=== PATIENT | female | born 1980 | race Two or more races ===

== ENCOUNTER 2021-05-22 08:37 | Outpatient (CLI) | payer OTHER | END 2021-05-22 08:38 | disposition home or self-care (01) | LOC: LAB 08:37 | PROVIDERS: ATTEND Internal Medicine Hematology & Oncology | DX: D50.8 Other iron deficiency anemias (principal); R79.89 Other specified abnormal findings of blood chemistry; I10 Essential (primary) hypertension; R74.02 Elevation of levels of lactic acid dehydrogenase [LDH]; K76.89 Other specified diseases of liver; C50.919 Malignant neoplasm of unspecified site of unspecified female breast; R97.8 Other abnormal tumor markers; R97.1 Elevated cancer antigen 125 [CA 125]; D50.0 Iron deficiency anemia secondary to blood loss (chronic); N93.8 Other specified abnormal uterine and vaginal bleeding ==

== ENCOUNTER 2021-05-22 09:10 | Outpatient (CLI) | payer OTHER | END 2021-05-22 09:18 | disposition home or self-care (01) | LOC: SONOGRAMA 09:10 | PROVIDERS: ATTEND Internal Medicine Hematology & Oncology | DX: E04.2 Nontoxic multinodular goiter (principal); D50.0 Iron deficiency anemia secondary to blood loss (chronic); N93.8 Other specified abnormal uterine and vaginal bleeding; E03.8 Other specified hypothyroidism ==

== ENCOUNTER → 2021-05-27 | Outpatient (CLI) | payer OTHER | END | disposition home or self-care (01) | LOC: SONOGRAMA 07:46 | PROVIDERS: ATTEND Internal Medicine Hematology & Oncology | DX: D25.1 Intramural leiomyoma of uterus (principal); D50.0 Iron deficiency anemia secondary to blood loss (chronic); N93.8 Other specified abnormal uterine and vaginal bleeding ==

== ENCOUNTER 2021-07-10 08:15 | Outpatient (CLI) | payer OTHER | END 2021-07-10 08:16 | disposition home or self-care (01) | LOC: LAB 08:15 | PROVIDERS: ATTEND Internal Medicine Hematology & Oncology | DX: D50.0 Iron deficiency anemia secondary to blood loss (chronic) (principal) ==

== ENCOUNTER 2021-10-09 08:37 | Outpatient (CLI) | payer OTHER | END 2021-10-09 08:44 | disposition home or self-care (01) | LOC: LAB 08:37 | PROVIDERS: ATTEND Internal Medicine Hematology & Oncology | DX: D50.8 Other iron deficiency anemias (principal); R79.9 Abnormal finding of blood chemistry, unspecified; I10 Essential (primary) hypertension; R74.02 Elevation of levels of lactic acid dehydrogenase [LDH]; K76.89 Other specified diseases of liver; D51.8 Other vitamin B12 deficiency anemias ==

== ENCOUNTER → 2022-02-07 08:43 | Outpatient (CLI) | payer OTHER | END | disposition home or self-care (01) | LOC: LAB 08:43 | PROVIDERS: ATTEND Internal Medicine Hematology & Oncology | DX: D50.8 Other iron deficiency anemias (principal); R79.9 Abnormal finding of blood chemistry, unspecified; I10 Essential (primary) hypertension; R74.02 Elevation of levels of lactic acid dehydrogenase [LDH]; K76.89 Other specified diseases of liver; C56.9 Malignant neoplasm of unspecified ovary; R97.8 Other abnormal tumor markers; R97.1 Elevated cancer antigen 125 [CA 125]; R97.0 Elevated carcinoembryonic antigen [CEA]; D50.0 Iron deficiency anemia secondary to blood loss (chronic); N93.8 Other specified abnormal uterine and vaginal bleeding; D25.1 Intramural leiomyoma of uterus ==

== ENCOUNTER 2022-03-04 11:38 | Outpatient (CLI) | payer OTHER | END 2022-03-04 11:46 | disposition home or self-care (01) | LOC: MAMO-SONO 11:38 | PROVIDERS: ATTEND Obstetrics & Gynecology | DX: Z12.31 Encounter for screening mammogram for malignant neoplasm of breast (principal); N63.21 Unspecified lump in the left breast, upper outer quadrant ==

== ENCOUNTER 2022-03-07 09:45 | Inpatient (IN) | payer OTHER ==
[~2022-03-07] VITALS: Ht 274.3 cm; Wt 95.3 kg
[2022-03-07] MEDS ORDERED: FUSION CAPSULE1 EACH PO (11:49)
[2022-03-12] MEDS ORDERED: MEDROXYPROGESTE10 MG (14:35)
[2022-03-12] MEDS ORDERED: FUSION PLUS CA1 EACH (14:36)
[2022-03-16] MEDS ORDERED: OXYC1TAB9 PO (12:17)
[2022-03-16] MEDS ORDERED: FUSION CAPSULE1 EACH PO (12:17)
== END 2022-03-16 13:10 | disposition home or self-care (01) | DRG 742 ==
LOC: O/R 03-12 07:55 → LDR 03-12 09:30 → OB/GYN 03-12 15:39
PROVIDERS: ADMIT Obstetrics & Gynecology; ATTEND Obstetrics & Gynecology
PROC: 0UT70ZZ Resection of Bilateral Fallopian Tubes, Open Approach (ICD-10-PCS; 2022-03-12)
PROC: 0UT90ZZ Resection of Uterus, Open Approach (ICD-10-PCS; principal; 2022-03-12 09:30)
PROC: 30233N1 Transfusion of Nonautologous Red Blood Cells into Peripheral Vein, Percutaneous Approach (ICD-10-PCS; 2022-03-15)
DX: D25.1 Intramural leiomyoma of uterus (principal); D62 Acute posthemorrhagic anemia; D25.2 Subserosal leiomyoma of uterus; N72 Inflammatory disease of cervix uteri; Z20.822 Contact with and (suspected) exposure to COVID-19

== ENCOUNTER → 2022-03-28 09:50 | Outpatient (CLI) | payer OTHER ==
[~2022-03-28 09:50] MED LIST: FUSION CAPSULE1 EACH PO; FUSION PLUS CA1 EACH; MEDROXYPROGESTE10 MG; OXYC1TAB9 PO
== END | disposition home or self-care (01) ==
LOC: LAB 09:50
PROVIDERS: ATTEND Internal Medicine Hematology & Oncology
DX: D50.8 Other iron deficiency anemias (principal); R79.9 Abnormal finding of blood chemistry, unspecified; I10 Essential (primary) hypertension; R74.02 Elevation of levels of lactic acid dehydrogenase [LDH]; K76.89 Other specified diseases of liver; D50.0 Iron deficiency anemia secondary to blood loss (chronic); N93.8 Other specified abnormal uterine and vaginal bleeding; D25.1 Intramural leiomyoma of uterus; D53.0 Protein deficiency anemia

== ENCOUNTER 2022-03-28 10:20 | Outpatient (CLI) | payer OTHER | END 2022-03-28 10:22 | disposition home or self-care (01) | LOC: SONOGRAMA 10:20 | DX: N63.21 Unspecified lump in the left breast, upper outer quadrant (principal) ==

== ENCOUNTER 2022-11-07 07:11 | Outpatient (CLI) | payer OTHER | END 2022-11-07 07:12 | disposition home or self-care (01) | LOC: LAB 07:11 | PROVIDERS: ATTEND Internal Medicine Hematology & Oncology | DX: D50.8 Other iron deficiency anemias (principal); R79.9 Abnormal finding of blood chemistry, unspecified; I10 Essential (primary) hypertension; R74.02 Elevation of levels of lactic acid dehydrogenase [LDH]; K76.89 Other specified diseases of liver; C56.9 Malignant neoplasm of unspecified ovary; R97.8 Other abnormal tumor markers; R97.1 Elevated cancer antigen 125 [CA 125]; R97.0 Elevated carcinoembryonic antigen [CEA]; D50.0 Iron deficiency anemia secondary to blood loss (chronic); N93.8 Other specified abnormal uterine and vaginal bleeding; D25.1 Intramural leiomyoma of uterus; D53.0 Protein deficiency anemia ==

== ENCOUNTER 2022-11-07 08:02 | Outpatient (CLI) | payer OTHER | END 2022-11-07 08:08 | disposition home or self-care (01) | LOC: TOM 08:02 | PROVIDERS: ATTEND Family Medicine | DX: R10.2 Pelvic and perineal pain (principal) ==

== ENCOUNTER → 2023-03-19 06:41 | Outpatient (CLI) | payer OTHER | END | disposition home or self-care (01) | LOC: LAB 06:41 | PROVIDERS: ATTEND Internal Medicine Hematology & Oncology | DX: D50.8 Other iron deficiency anemias (principal); R79.9 Abnormal finding of blood chemistry, unspecified; I10 Essential (primary) hypertension; R74.02 Elevation of levels of lactic acid dehydrogenase [LDH]; K76.89 Other specified diseases of liver; D63.8 Anemia in other chronic diseases classified elsewhere; D55.0 Anemia due to glucose-6-phosphate dehydrogenase [G6PD] deficiency; D51.1 Vitamin B12 deficiency anemia due to selective vitamin B12 malabsorption with proteinuria; E03.8 Other specified hypothyroidism; E06.3 Autoimmune thyroiditis; D50.0 Iron deficiency anemia secondary to blood loss (chronic); N93.8 Other specified abnormal uterine and vaginal bleeding; D25.1 Intramural leiomyoma of uterus; D53.0 Protein deficiency anemia; R10.2 Pelvic and perineal pain ==

== ENCOUNTER → 2023-07-07 | Outpatient (CLI) | payer OTHER | END | disposition home or self-care (01) | LOC: MAMO-SONO 07:38 | DX: N63.0 Unspecified lump in unspecified breast (principal); Z12.31 Encounter for screening mammogram for malignant neoplasm of breast; N64.4 Mastodynia; N60.11 Diffuse cystic mastopathy of right breast ==

== ENCOUNTER 2023-07-27 06:17 | Outpatient (CLI) | payer OTHER ==
[2023-07-27 07:45] LABS: HEMATOCRIT 41.8 % (36.0-45.00); HEMOGLOBIN 14.1 g/dL (12.0-15.00); MEAN CELL VOLUME 88.4 fL (80.00-100.00); MEAN CORPUSCULAR HEMOGLOBIN 29.9 pg (27.00-32.0); MEAN CORPUSCULAR HGB CONC 33.8 g/dl (32.0-36.0); PLATELET COUNT 340 K/uL (150-450); RED BLOOD COUNT 4.73 M/uL (4.00-6.00); RED CELL DISTRIBUTION WIDTH 13.1 % (11.5-14.5)
[2023-07-27 08:36] LABS: % SATURACION 29.3 % (15-50); ALBUMIN 3.4 gm/dL (3.4-5.0); BILIRUBIN TOTAL 0.48 mg/dL (0.3-1.2); CALCIUM 8.5 mg/dL (8.5-10.1); CREATININE SERUM 0.75 mg/dL (0.55-1.02); FERRITIN 85.7 NG/ML (8-252); GFR 85.16; GLOBULINA 3.4 G/DL (2.4-3.5); POTASSIUM 4.47 mEq/L (3.5-5.1); TOTAL PROTEIN 6.8 gm/dL (6.4-8.2)
[2023-07-27 10:45] LABS: FOLIC ACID 3.9 ng/ml (4.78-20)
[2023-07-27 12:28] LABS: PLATELET ESTIMATE NORMAL (NORMAL)
[2023-07-27 12:55] LABS: MANUAL PLATELET COUNT 526
[2023-07-28 12:07] LABS: CA 125 13.9 U/mL (0.0-38.1)
[2023-07-29 16:11] LABS: PARIETAL CELL ANTIBODIES 26.9 Units (0.0-20.0)
[2023-07-31 12:08] LABS: INTRINSIC FACTOR BLOCKING AB 1.1 AU/mL (0.0-1.1)
== END 2023-07-27 06:18 | disposition home or self-care (01) ==
LOC: LAB 06:17
PROVIDERS: ATTEND Internal Medicine Hematology & Oncology
DX: D50.0 Iron deficiency anemia secondary to blood loss (chronic) (principal); N93.8 Other specified abnormal uterine and vaginal bleeding; D25.1 Intramural leiomyoma of uterus; D53.0 Protein deficiency anemia; R10.2 Pelvic and perineal pain

== ENCOUNTER 2023-09-30 07:42 | Outpatient (CLI) | payer OTHER | END 2023-09-30 07:47 | disposition home or self-care (01) | LOC: SONOGRAMA 07:42 | PROVIDERS: ATTEND Internal Medicine Hematology & Oncology | DX: D51.1 Vitamin B12 deficiency anemia due to selective vitamin B12 malabsorption with proteinuria (principal); D50.8 Other iron deficiency anemias; N93.8 Other specified abnormal uterine and vaginal bleeding; D25.1 Intramural leiomyoma of uterus; D53.0 Protein deficiency anemia; R10.2 Pelvic and perineal pain; N83.201 Unspecified ovarian cyst, right side; D52.0 Dietary folate deficiency anemia; R94.5 Abnormal results of liver function studies ==

== ENCOUNTER 2023-09-30 08:42 | Outpatient (CLI) | payer OTHER ==
[2023-09-30 10:12] LABS: ALBUMIN 3.8 gm/dL (3.4-5.0); BILIRUBIN TOTAL 0.8 mg/dL (0.3-1.2); BILIRUBIN,CONJUGATED 0.18 mg/dL (0.0-0.2); BILIRUBIN,UNCONJUGATED 0.62 mg/dL (0.0-0.6); CALCIUM 9.1 mg/dL (8.5-10.1); CREATININE SERUM 0.85 mg/dL (0.55-1.02); GFR 73.7; GLOBULINA 3.6 G/DL (2.4-3.5); POTASSIUM 4.57 mEq/L (3.5-5.1); TOTAL PROTEIN 7.4 gm/dL (6.4-8.2)
== END 2023-09-30 08:50 | disposition home or self-care (01) ==
LOC: LAB 08:42
PROVIDERS: ATTEND Internal Medicine Hematology & Oncology
DX: I10 Essential (primary) hypertension (principal); R74.02 Elevation of levels of lactic acid dehydrogenase [LDH]; K76.89 Other specified diseases of liver; R94.6 Abnormal results of thyroid function studies; K76.9 Liver disease, unspecified; D51.1 Vitamin B12 deficiency anemia due to selective vitamin B12 malabsorption with proteinuria; D50.8 Other iron deficiency anemias; N93.0 Postcoital and contact bleeding; D25.1 Intramural leiomyoma of uterus; D53.0 Protein deficiency anemia; R10.2 Pelvic and perineal pain; N83.201 Unspecified ovarian cyst, right side; D52.0 Dietary folate deficiency anemia; R94.5 Abnormal results of liver function studies

== ENCOUNTER 2024-07-27 07:11 | Outpatient (CLI) | payer OTHER ==
[2024-07-27 08:00] LABS: HEMOGLOBIN 14.8 g/dL (12.0-15.00); MEAN CELL VOLUME 87.5 fL (80.00-100.00); MEAN CORPUSCULAR HEMOGLOBIN 30.9 pg (27.00-32.0); MEAN CORPUSCULAR HGB CONC 35.3 g/dl (32.0-36.0); PLATELET COUNT 365 K/uL (150-450); RED CELL DISTRIBUTION WIDTH 13.4 % (11.5-14.5)
[2024-07-27 08:14] LABS: ERYTHROCYTE SEDIMENTATION RATE 6 mm/hr
[2024-07-27 08:52] LABS: ALBUMIN 3.7 gm/dL (3.4-5.0); BILIRUBIN TOTAL 0.93 mg/dL (0.3-1.2); CALCIUM 9.2 mg/dL (8.5-10.1); CHOL HDL RATIO 4.3 (0-5.0); CREATININE SERUM 0.89 mg/dL (0.55-1.02); GFR 69.55; GLOBULINA 3.5 G/DL (2.4-3.5); POTASSIUM 4.74 mEq/L (3.5-5.1); T4 TOTAL 9.15 UG/DL (4.8-13.9); TOTAL PROTEIN 7.2 gm/dL (6.4-8.2); TSH 1.07 uIU/mL (0.358-3.74)
[2024-07-27 09:06] LABS: URINE APPEARANCE Clear; URINE BILIRRUBIN Negative (NEGATIVE); URINE BLOOD Negative; URINE COLOR Yellow; URINE GLUCOSE Negative (NEGATIVE); URINE KETONE Negative (NEGATIVE); URINE LEUKOCYTE Negative; URINE NITRATE Negative; URINE PROTEIN Negative (NEGATIVE); URINE UROBILINOGEN 0.2 E.U./dl
[2024-07-27 09:12] LABS: URINE BACTERIA 291.2 uL (0.0-1933); URINE EPITHELIAL CELLS 7.7 uL (0.0-38.8); URINE RBC 3.5 uL (0.0-20.8); URINE WBC 1.8 uL (0.0-23.2)
== END 2024-07-27 07:12 | disposition home or self-care (01) ==
LOC: LAB 07:11
DX: D64.9 Anemia, unspecified (principal); I10 Essential (primary) hypertension; N39.0 Urinary tract infection, site not specified; E78.2 Mixed hyperlipidemia; E03.9 Hypothyroidism, unspecified; E11.9 Type 2 diabetes mellitus without complications; Z82.61 Family history of arthritis

== ENCOUNTER 2024-09-02 06:10 | Outpatient (CLI) | payer OTHER ==
[2024-09-02 08:20] LABS: % SATURACION 29.1 % (15-50); ALBUMIN 3.8 gm/dL (3.4-5.0); BILIRUBIN TOTAL 0.9 mg/dL (0.3-1.2); CALCIUM 8.8 mg/dL (8.5-10.1); CREATININE SERUM 0.89 mg/dL (0.55-1.02); GFR 69.55; GLOBULINA 3.3 G/DL (2.4-3.5); POTASSIUM 3.88 mEq/L (3.5-5.1); TOTAL PROTEIN 7.1 gm/dL (6.4-8.2)
[2024-09-02 09:15] LABS: FOLIC ACID > 20.00 ng/ml (4.78-20)
== END 2024-09-02 06:13 | disposition home or self-care (01) ==
LOC: LAB 06:10
PROVIDERS: ATTEND Internal Medicine Hematology & Oncology
DX: D51.1 Vitamin B12 deficiency anemia due to selective vitamin B12 malabsorption with proteinuria (principal); D50.8 Other iron deficiency anemias; N93.8 Other specified abnormal uterine and vaginal bleeding; D25.1 Intramural leiomyoma of uterus; D53.0 Protein deficiency anemia; R10.2 Pelvic and perineal pain; N83.201 Unspecified ovarian cyst, right side; D52.0 Dietary folate deficiency anemia; R94.5 Abnormal results of liver function studies; K76.89 Other specified diseases of liver; R74.02 Elevation of levels of lactic acid dehydrogenase [LDH]; I10 Essential (primary) hypertension

== ENCOUNTER 2025-02-24 06:15 | Outpatient (CLI) | payer OTHER ==
[2025-02-24 07:55] LABS: BASO % 0.8 % (0.1-1.2); EOS # 0.08 (0.04-0.54); EOS % 0.9 % (0.7-7.0); LYMPH # 1.46 (1.18-3.74); LYMPH % 16.1 % (19.3-53.1); MEAN PLATELET VOLUME 10.60 fl (9.4-12.4); MONO # 0.66 (0.24-0.82); MONO % 7.3 % (4.7-12.5); NEUT # 6.80 (1.56-6.13); NEUT % 74.7 % (34.0-71.1); RED CELL DISTRIBUTION WIDTH 12.3 % (11.6-14.4)
[2025-02-24 08:04] LABS: % SATURACION 34.0 % (15-50); ALT/SGPT 68.0 U/L (12-78); AST/SGOT 26.0 U/L (15-37); BILIRUBIN TOTAL 0.77 mg/dL (0.3-1.2); BUN CREA RATIO 15.0 (7.0-25.0); CREATININE SERUM 1.25 mg/dL (0.55-1.02); FE 111.0 ug/dl (50-170); GFR 46.77; GLOBULINA 3.6 G/DL (2.4-3.5); GLUCOSE FASTING 97.0 mg/dL (65-100); LDH 142.0 U/L (84-246); OSMOLALITY SERUM 282.0 MOSM/KG (275-295)
[2025-02-24 10:38] LABS: FOLIC ACID 15.27 ng/ml (4.78-20); VITAMIN D3 25 HYDROXY 15.85 ng/ml (30-120)
[2025-02-25 07:07] LABS: TRANSFERIN 253.0 mg/dL (192-364)
[2025-02-25 09:11] LABS: CA 125 14.1 U/mL (0.0-38.1); CA 15-3 7.3 U/mL (0.0-25.0)
[2025-02-28 11:08] LABS: PARIETAL CELL ANTIBODIES 22.2 Units (0.0-20.0)
== END 2025-02-24 06:20 | disposition home or self-care (01) ==
LOC: LAB 06:15
PROVIDERS: ATTEND Internal Medicine Hematology & Oncology
DX: D51.1 Vitamin B12 deficiency anemia due to selective vitamin B12 malabsorption with proteinuria (principal); D50.8 Other iron deficiency anemias; N93.8 Other specified abnormal uterine and vaginal bleeding; D25.1 Intramural leiomyoma of uterus; D53.0 Protein deficiency anemia; R10.2 Pelvic and perineal pain; N83.201 Unspecified ovarian cyst, right side; D52.0 Dietary folate deficiency anemia; R94.5 Abnormal results of liver function studies; I10 Essential (primary) hypertension; R74.02 Elevation of levels of lactic acid dehydrogenase [LDH]; K76.89 Other specified diseases of liver; E55.9 Vitamin D deficiency, unspecified; C50.919 Malignant neoplasm of unspecified site of unspecified female breast; R97.0 Elevated carcinoembryonic antigen [CEA]; C56.9 Malignant neoplasm of unspecified ovary